=== PATIENT | female | born 1985 | race American Indian/Alaskan Native ===

== ENCOUNTER → 2017-03-14 15:55 | Outpatient (CLI) | payer OTHER ==
[~2017-03-14 15:55] MED LIST: CEFADROXIL500 MG PO; CLARITIN10 MG PO; GUAIFENESI100 MG/52 PO; Micronase PO; ZITHROMAX TRI-500 MG PO; ZYRTEC10 MG PO
== END | disposition home or self-care (01) ==
LOC: PPHC 15:55
DX: R05 Cough (principal)

== ENCOUNTER 2017-03-16 09:21 | Outpatient (CLI) | payer OTHER | END 2017-03-16 09:31 | disposition home or self-care (01) | LOC: RAD 09:21 | DX: R05 Cough (principal) ==

== ENCOUNTER 2022-11-01 11:49 | Outpatient (CLI) | payer OTHER | END 2022-11-01 12:01 | disposition home or self-care (01) | LOC: RAD 11:49 | PROVIDERS: ATTEND Orthopaedic Surgery | DX: M25.571 Pain in right ankle and joints of right foot (principal); M25.561 Pain in right knee; M25.562 Pain in left knee; S83.200A Bucket-handle tear of unspecified meniscus, current injury, right knee, initial encounter | CPT/HCPCS: 73721 ==